=== PATIENT | female | born 1940 | race Hispanic/Latino ===

== ENCOUNTER → 2024-10-26 | Outpatient (CLI) | payer OTHER ==
[~2024-10-26] MED LIST: IOHEXOL-350 75 ML VIAL IV ONE
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
== END | disposition home or self-care (01) ==
LOC: RAH 13:42
PROVIDERS: ATTEND Internal Medicine Gastroenterology
DX: M47.814 Spondylosis without myelopathy or radiculopathy, thoracic region (principal); M54.9 Dorsalgia, unspecified; M51.44 Schmorl's nodes, thoracic region; E04.1 Nontoxic single thyroid nodule
CPT/HCPCS: 72129; Q9967